=== PATIENT | female | born 1950 | race Caucasian/White ===

== ENCOUNTER 2018-10-02 16:47 | Inpatient (IN) ==
[~2018-10-02 16:47] MED LIST: Adenosine Inj 6 MG/2 ML Syringe IV.PUSH ONE
[2018-10-02] MEDS ORDERED: fentaNYL Citrate Inj 100 MCG/2 ML Ampul ONE (16:51)
[2018-10-02] MEDS ORDERED: Diphtheria/Tetanus/Pertussis Vaccine Inj 0.5 ML Syringe IM ONE (16:53)
[2018-10-02] MEDS ORDERED: Midazolam Inj 5 MG/ML 1 ML Vial ONE (17:00)
[2018-10-02 17:07] LABS: Baso # (Auto) 0.1 th/mm3 (0.0-0.2); Baso % (Auto) 0.7 % (0.0-2.0); Eos # (Auto) 0.1 th/mm3 (0.0-0.4); Eos % (Auto) 0.3 % (0.0-4.0); Hematocrit 41.5 % (35.0-46.0); Lymph # (Auto) 3.7 th/mm3 (1.0-4.8); Mean Corpuscular HGB Conc 33.8 % (32.0-36.0); Mean Corpuscular Hemoglobin 30.8 pg (27.0-34.0); Mean Corpuscular Volume 91.1 fL (80.0-100.0); Mean Platelet Volume 8.4 fL (7.0-11.0); Mono # (Auto) 1.2 th/mm3 (0.0-0.9); Mono % (Auto) 6.7 % (0.0-8.0); Neut # (Auto) 13.5 th/mm3 (1.8-7.7); Neut % (Auto) 72.3 % (16.0-70.0); Platelet Count 440 th/mm3 (150-450); Red Blood Count 4.56 mil/mm3 (4.00-5.30); Red Cell Distribution Width 15.4 % (11.6-17.2); White Blood Count 18.6 th/mm3 (4.0-11.0)
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
[2018-10-02 17:17] LABS: Activated Partial Thrombo Time 23.6 sec (23.4-31.7); INR 1.1 Ratio; Prothrombin Time 11.5 sec (9.8-11.6)
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
[2018-10-02 17:40] LABS: ABG PCO2 36 mmHg (38-42); ABG PO2 107 mmHg (61-120)
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
[2018-10-02] MEDS ORDERED: Potassium Chlor 40 mEq Premix 40 MEQ/100 ML PIGGYBACK IV.SIG PRN ×2 (17:52)
[2018-10-02] MEDS ORDERED: Potassium Phosphate 500 MG Soluble Tablet PO PRN ×2 (17:52)
[2018-10-02] MEDS ORDERED: Potassium Chlor 20 mEq Premix 20 MEQ/100 ML PIGGYBACK IV.SIG PRN (17:52)
[2018-10-02] MEDS ORDERED: Magnesium Sulfate Inj 2 GM in Sodium Chlor 0.9% Inj 96 ML IV.SIG PRN (17:52)
[2018-10-02] MEDS ORDERED: Bisacodyl 10 MG Supp RECTAL PRN (17:52)
[2018-10-02] MEDS ORDERED: Acetaminophen 325 MG Tablet PO PRN (17:52)
[2018-10-02] MEDS ORDERED: Magnesium Sulfate Inj 4 GM in Sodium Chlor 0.9% Inj 92 ML IV.SIG PRN (17:52)
[2018-10-02] MEDS ORDERED: Sodium Phosphate Inj 30 MMOL in Sodium Chlor 0.9% Inj 250 ML IV.SIG PRN (17:52)
[2018-10-02] MEDS ORDERED: Potassium Chloride 25 MEQ Effervescent Tablet PO PRN (17:52)
[2018-10-02] MEDS ORDERED: Potassium Phosphate Inj 30 MMOL in Sodium Chlor 0.9% Inj 250 ML IV.SIG PRN (17:52)
[2018-10-02] MEDS ORDERED: Magnesium Oxide 400 MG Tablet PO PRN (17:52)
[2018-10-02 18:43] LABS: Alanine Aminotransferase 20 U/L (10-53)
[2018-10-02 18:45] LABS: Alkaline Phosphatase 86 U/L (45-117); Total Protein 7.6 g/dL (6.4-8.2)
[2018-10-02 18:51] LABS: Albumin 3.8 g/dL (3.4-5.0); Anion Gap 19 meq/L (5-15); Aspartate Aminotransferase 25 U/L (15-37); Blood Urea Nitrogen 8 mg/dL (7-18); Calcium 8.8 mg/dL (8.5-10.1); Carbon Dioxide 17.9 meq/L (21.0-32.0); Chloride 96 meq/L (98-107); Glomerular Filtration Rate 32 mL/min (>89); Glucose,Random 238 mg/dL (74-106); Magnesium 1.3 mg/dL (1.5-2.5); Potassium 3.4 meq/L (3.5-5.1); Sodium 133 meq/L (136-145)
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
[2018-10-02] MEDS: Morphine Inj 4 MG/ML Vial IV.PUSH PRN ×3 (19:21→23:33)
[2018-10-02] MEDS: Sod Chloride 0.9% Inj 1,000 ML IV.CONT SCH (19:35)
[2018-10-02] MEDS ORDERED: Dextrose 50% in Water 50 ML Vial IV.PUSH PRN (19:44)
[2018-10-02] MEDS ORDERED: Influenza (Quadrivalent) Vaccine 0.5 ML Syringe IM ONE (20:30)
[2018-10-02] MEDS ORDERED: Fosphenytoin Inj 1,000 MGPE in Sodium Chlor 0.9% Inj 50 ML IV.SIG STA (20:36)
[2018-10-02] MEDS ORDERED: Haloperidol Inj 5 MG/ML Ampul IV.PUSH ONE (21:00)
[2018-10-02] MEDS ORDERED: Magnesium Sulfate Inj 2 GM in Sodium Chlor 0.9% Inj 96 ML IV.SIG ONE (21:00)
[2018-10-02] MEDS ORDERED: Dexmedetomidine Inj 200 MCG in Sodium Chlor 0.9% Inj 48 ML IV.CONT PRN (21:00)
[2018-10-02] MEDS ORDERED: Dexmedetomidine Inj 200 MCG/2 ML Vial IV.PUSH ONE (21:00)
[2018-10-02] MEDS: LORazepam 1 MG Tablet PO SCH (21:30)
[2018-10-02] MEDS: Senna/Docusate Sodium 8.6/50 MG Tablet PO SCH (21:33)
[2018-10-02] MEDS: Famotidine 20 MG Tablet PO SCH (21:33)
[2018-10-02] MEDS: Potassium Chlor 10 mEq Premix 10 MEQ/100 ML PIGGYBACK IV.SIG SCH ×2 (21:53→23:48)
[2018-10-02] MEDS: Famotidine PF Inj 20 MG/2 ML Vial IV.PUSH SCH (21:58)
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
[2018-10-03] MEDS: Insulin NovoLOG Aspart Correctional Sugar Inj SQ SCH ×5 (00:31→23:57)
[2018-10-03] MEDS: Potassium Chlor 10 mEq Premix 10 MEQ/100 ML PIGGYBACK IV.SIG SCH (01:26)
[2018-10-03 01:28] LABS: Bacteria,Urine Rare /hpf; Bilirubin,Urine Negative (Negative); Clarity,Urine Clear (Clear); Color,Urine Yellow (Yellw/Straw); Glucose,Urine (UA) Negative (Negative); Hyaline Casts,Urine 3 /lpf (0-3); Leukocyte Esterase,Urine Negative (Negative); Mucus,Urine Few /lpf (Occasional); Nitrite,Urine Negative (Negative); Specific Gravity,Urine 1.006 (1.002-1.035)
[2018-10-03] MEDS ORDERED: Sod Chloride 0.9% Inj 1,000 ML IV.SIG ONE (01:45)
[2018-10-03] MEDS ORDERED: Albumin Human 5% Inj 250 ML IV.SIG ONE (02:00)
[2018-10-03 03:25] LABS: Baso # (Auto) 0.1 th/mm3 (0.0-0.2); Baso % (Auto) 0.5 % (0.0-2.0); Eos % (Auto) 0.1 % (0.0-4.0); Hematocrit 30.7 % (35.0-46.0); Hemoglobin 10.5 gm/dL (11.6-15.3); Lymph # (Auto) 1.6 th/mm3 (1.0-4.8); Lymph % (Auto) 14.1 % (9.0-44.0); Mean Corpuscular HGB Conc 34.3 % (32.0-36.0); Mean Corpuscular Hemoglobin 30.8 pg (27.0-34.0); Mean Corpuscular Volume 89.7 fL (80.0-100.0); Mean Platelet Volume 8.2 fL (7.0-11.0); Mono % (Auto) 8.7 % (0.0-8.0); Neut # (Auto) 8.8 th/mm3 (1.8-7.7); Neut % (Auto) 76.6 % (16.0-70.0); Platelet Count 250 th/mm3 (150-450); Red Blood Count 3.42 mil/mm3 (4.00-5.30); Red Cell Distribution Width 15.2 % (11.6-17.2); White Blood Count 11.5 th/mm3 (4.0-11.0)
[2018-10-03] MEDS: Chlorhexidine Gluconate 2% 1 Pack (2 Cloths) TOPICAL SCH (03:34)
[2018-10-03 03:59] LABS: Anion Gap 6 meq/L (5-15); Blood Urea Nitrogen 6 mg/dL (7-18); Carbon Dioxide 26.4 meq/L (21.0-32.0); Chloride 112 meq/L (98-107); Glomerular Filtration Rate 57 mL/min (>89); Glucose,Random 117 mg/dL (74-106); Magnesium 1.8 mg/dL (1.5-2.5); Potassium 3.3 meq/L (3.5-5.1); Sodium 144 meq/L (136-145)
[2018-10-03] MEDS ORDERED: Chlorhexidine Gluconate 2% 1 Pack (2 Cloths) TOPICAL PRN (04:00)
[2018-10-03 04:10] LABS: Calcium-Albumin Corrected 7.8 mg/dL (8.5-10.1)
[2018-10-03] MEDS: Potassium Chlor 20 mEq Premix 20 MEQ/100 ML PIGGYBACK IV.SIG PRN ×3 (04:17→23:58)
[2018-10-03] MEDS: Morphine Inj 4 MG/ML Vial IV.PUSH PRN ×5 (05:21→22:26)
[2018-10-03] MEDS: Sod Chloride 0.9% Inj 1,000 ML IV.CONT SCH ×3 (05:35→23:57)
[2018-10-03] MEDS: LORazepam 1 MG Tablet PO SCH ×4 (09:06→20:02)
[2018-10-03] MEDS: Senna/Docusate Sodium 8.6/50 MG Tablet PO SCH ×2 (09:07→20:02)
[2018-10-03] MEDS: Famotidine 20 MG Tablet PO SCH ×2 (09:07→20:02)
[2018-10-03] MEDS: Famotidine PF Inj 20 MG/2 ML Vial IV.PUSH SCH ×2 (09:07→20:02)
[2018-10-03] MEDS ORDERED: Hold Metfromin until further notice OTHER SCH (09:51)
--- NOTE | 2018-10-03 13:41 | ECG ---
Date Performed: 10/02/2018 Time Performed: 17:29:31 PTAGE: 89 years EKG: SINUS TACHYCARDIA RIGHT ATRIAL ENLARGEMENT POSSIBLE LEFT ATRIAL ENLARGEMENT BORDERLINE LEFT AXIS DEVIATION ABNORMAL ECG NO PRIOR TRACING DOCTOR: Jaylen Reagan Interpretating Date/Time 10/03/2018 13:30:50
--- NOTE | 2018-10-03 15:04 | OTSOAPIP ---
ATTEMPTED TO SEE PATIENT. PATIENT IS CURRENTLY DEEPLY SLEEPING AFTER BEING RECENTLY MEDICATED IN PREPARATION TO GO TO CT. ROSA GARCIA REQUESTED TO HOLD EVALUATION THIS DATE. WILL REATTEMPT NEXT DAY. Therapist: Tete Balderas OTR/L Signature on file
--- NOTE | 2018-10-03 15:30 | ECHRPT ---
Indication: SYNCOPE CONCLUSIONS Normal left ventricular size and wall thickness. The left ventricular systolic function is normal wi th an estimated ejection fraction in the range of 60-65%. No regional wall motion abnormalities are presen t. [id number] mitral valve regurgitation. There is mild to tricuspid valve regurgitation. The estimated pulmonary arterial pressure is 45 mmHg. BP: / HR: Rhythm: Sinus MEASUREMENTS (Male / Female) Normal Values Technical Quality:Fair 2D ECHO LV Diastolic Diameter PLAX 4.3 cm 4.2 - 5.9 / 3.9 - 5.3 cm LV Systolic Diameter PLAX 2.6 cm IVS Diastolic Thickness 1.0 cm 0.6 - 1.0 / 0.6 - 0.9 cm LVPW Diastolic Thickness 1.0 cm 0.6 - 1.0 / 0.6 - 0.9 cm LV Relative Wall Thickness 0.5 RV Internal Dim ED PLAX 2.9 cm LVOT Diameter 1.8 cm Aortic Root Diameter 2.8 cm LA Systolic Diameter LX 2.8 cm 3.0 - 4.0 / 2.7 - 3.8 cm M-MODE AV Cusp Separation MM 2.1 cm DOPPLER AV Peak Velocity 139.0 cm/s AV Peak Gradient 7.7 mmHg AV Mean Gradient 4.0 mmHg AV Velocity Time Integral 25.4 cm LVOT Peak Velocity 103.0 cm/s LVOT Peak Gradient 4.2 mmHg LVOT Velocity Time Integral 21.0 cm AV Area Cont Eq vti 2.1 cm AV Area Cont Eq pk 1.9 cm Mitral E Point Velocity 118.0 cm/s Mitral A Point Velocity 105.0 cm/s Mitral E to A Ratio 1.1 LV E' Lateral Velocity 11.1 cm/s Mitral E to LV E' Lateral Ratio 10.6 LV E' Septal Velocity 8.5 cm/s Mitral E to LV E' Septal Ratio 13.9 TR Peak Velocity 309.0 cm/s TR Peak Gradient 38.2 mmHg Right Atrial Pressure 10.0 mmHg Pulmonary Artery Systolic Pressu 48.2 mmHg Right Ventricular Systolic Press 48.2 mmHg PV Peak Velocity 88.7 cm/s PV Peak Gradient 3.1 mmHg FINDINGS LEFT VENTRICLE Normal left ventricular size and wall thickness. The left ventricular systolic function is normal wi th an estimated ejection fraction in the range of 60-65%. No regional wall motion abnormalities are presen t. RIGHT VENTRICLE Normal right ventricular size and systolic function. LEFT ATRIUM The left atrial size is normal. RIGHT ATRIUM The right atrial size is normal. ATRIAL SEPTUM The interatrial septum not well visualized. AORTA The aortic root and proximal ascending aorta are not well visualized. MITRAL VALVE [id number] mitral valve regurgitation. AORTIC VALVE Trileaflet aortic valve. No aortic valve stenosis or regurgitation. TRICUSPID VALVE There is mild to tricuspid valve regurgitation. The estimated pulmonary arterial pressure is 45 mmHg. PULMONARY VALVE No pulmonary valve regurgitation or stenosis. VESSELS The inferior vena cava is normal in size. PERICARDIUM A prominent epicardial fat pad is present. Dennis Mejia MD (Electronically Signed) Final Date:03 October 2018 15:29
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
[2018-10-04] MEDS: Potassium Chlor 20 mEq Premix 20 MEQ/100 ML PIGGYBACK IV.SIG PRN (02:05)
[2018-10-04] MEDS: Chlorhexidine Gluconate 2% 1 Pack (2 Cloths) TOPICAL SCH (03:51)
[2018-10-04 05:30] LABS: Baso # (Auto) 0.1 th/mm3 (0.0-0.2); Baso % (Auto) 0.8 % (0.0-2.0); Eos # (Auto) 0.1 th/mm3 (0.0-0.4); Eos % (Auto) 0.6 % (0.0-4.0); Hematocrit 28.9 % (35.0-46.0); Hemoglobin 9.9 gm/dL (11.6-15.3); Lymph % (Auto) 24.6 % (9.0-44.0); Mean Corpuscular HGB Conc 34.4 % (32.0-36.0); Mean Corpuscular Hemoglobin 31.1 pg (27.0-34.0); Mean Corpuscular Volume 90.4 fL (80.0-100.0); Mean Platelet Volume 8.4 fL (7.0-11.0); Mono # (Auto) 0.8 th/mm3 (0.0-0.9); Mono % (Auto) 9.5 % (0.0-8.0); Neut # (Auto) 5.3 th/mm3 (1.8-7.7); Neut % (Auto) 64.5 % (16.0-70.0); Platelet Count 199 th/mm3 (150-450); Red Blood Count 3.19 mil/mm3 (4.00-5.30); Red Cell Distribution Width 15.5 % (11.6-17.2); White Blood Count 8.2 th/mm3 (4.0-11.0)
[2018-10-04] MEDS: Morphine Inj 4 MG/ML Vial IV.PUSH PRN (05:36)
[2018-10-04] MEDS: Insulin NovoLOG Aspart Correctional Sugar Inj SQ SCH ×4 (05:51→20:35)
[2018-10-04 06:36] LABS: Alanine Aminotransferase 14 U/L (10-53); Albumin 2.7 g/dL (3.4-5.0); Alkaline Phosphatase 59 U/L (45-117); Anion Gap 8 meq/L (5-15); Aspartate Aminotransferase 16 U/L (15-37); Blood Urea Nitrogen 3 mg/dL (7-18); Calcium 7.6 mg/dL (8.5-10.1); Carbon Dioxide 22.7 meq/L (21.0-32.0); Chloride 111 meq/L (98-107); Glomerular Filtration Rate 81 mL/min (>89); Glucose,Random 93 mg/dL (74-106); Potassium 4.2 meq/L (3.5-5.1); Sodium 142 meq/L (136-145); Total Protein 5.5 g/dL (6.4-8.2)
[2018-10-04] MEDS: LORazepam 1 MG Tablet PO SCH (08:12)
[2018-10-04] MEDS: Senna/Docusate Sodium 8.6/50 MG Tablet PO SCH ×2 (08:12→20:36)
[2018-10-04] MEDS: Famotidine PF Inj 20 MG/2 ML Vial IV.PUSH SCH ×2 (08:12→22:51)
[2018-10-04] MEDS: Famotidine 20 MG Tablet PO SCH ×2 (08:12→20:36)
--- NOTE | 2018-10-04 09:56 | P.PNNEU ---
Subjective Subjective Comments: confused off and on Active Medications: Active Medications Acetaminophen (Tylenol) 650 mg PO Q6H PRN PRN Reason: FEVER >101F Hydrocodone Bitart/Acetaminophen (Wheeler 10/325) 1 tab PO Q4H PRN PRN Reason: PAIN SCALE 1 TO 10 Last Admin: 10/04/18 08:11 Dose: 1 tab Al Hydroxide/Mg Hydroxide (Milk Of Magnhenry Liq) 30 ml PO Q12H PRN PRN Reason: Mild Constipation Bisacodyl (Dulcolax Supp) 10 mg RECTAL DAILY PRN PRN Reason: SEVERE CONSITIPATION Chlorhexidine Gluconate (Chlorhexidine 2% Cloth) 3 pack TOPICAL DAILY@0400 [facility] Stop: 10/08/18 03:59 Last Admin: 10/04/18 03:51 Dose: 3 pack Chlorhexidine Gluconate (Chlorhexidine 2% Cloth) 3 pack TOPICAL DAILY@0400 PRN PRN Reason: Extra cloth needed Stop: 10/08/18 03:59 Dextrose (D50w Vial) 50 ml IV.PUSH UNSCH PRN PRN Reason: PER HYPOGLYCEMIA PROTOCOL Famotidine (Pepcid Pf Inj) 20 mg IV.PUSH Q12HR [facility] Last Admin: 10/04/18 08:12 Dose: Not Given Famotidine (Pepcid) 20 mg PO BID [facility] Last Admin: 10/04/18 08:12 Dose: 20 mg Glucagon (Glucagon Inj) 1 mg OTHER PRN PRN PRN Reason: for Hypoglycemia Protocol Magnesium Sulfate 2 gm/ Sodium (Chloride) 100 mls @ 50 mls/hr IV.SIG UNSCH PRN PRN Reason: For Magnesium 1.2 - 1.6 mg/dL Sodium Chloride (Ns Inj) 1,000 mls @ 100 mls/hr IV.CONT .Q10H [facility] Last Admin: 10/03/18 23:57 Dose: 100 mls/hr Potassium Chloride (Kcl 40 Meq Premix Inj) 40 meq in 100 mls @ 25 mls/hr IV.SIG Q2H PRN PRN Reason: For Potassium 2.8 - 3.2 mEq/L Potassium Chloride (Kcl 20 Meq Premix Inj) 20 meq in 100 mls @ 50 mls/hr IV.SIG Q2H PRN PRN Reason: For Potassium 3.3 - 3.5 mEq/L Last Infusion: 10/04/18 04:05 Dose: Infused Potassium Chloride (Kcl 40 Meq Premix Inj) 40 meq in 100 mls @ 25 mls/hr IV.SIG UNSCH PRN PRN Reason: For Potassium 3.3 - 3.5 mEq/L Potassium Phosphate 30 mmol/ (Sodium Chloride) 260 mls @ 42 mls/hr IV.SIG UNSCH PRN PRN Reason: SEE LABEL COMMENTS Sodium Phosphate 30 mmol/ (Sodium Chloride) 260 mls @ 42 mls/hr IV.SIG UNSCH PRN PRN Reason: For Phosphorus < 2.5 mg/dL Magnesium Sulfate 4 gm/ Sodium (Chloride) 100 mls @ 50 mls/hr IV.SIG UNSCH PRN PRN Reason: For Magnesium 0.9 - 1.1 mg/dL Potassium Chloride (Kcl 20 Meq Premix Inj) 20 meq in 100 mls @ 50 mls/hr IV.SIG Q2H PRN PRN Reason: For Potassium 2.8 - 3.2 mEq/L Dexmedetomidine HCl 200 mcg/ (Sodium Chloride) 50 mls @ 4.39 mls/hr IV.CONT TITRATE PRN; Protocol PRN Reason: Per Protocol Last Titration: 10/02/18 23:48 Dose: 0 mcg/kg/hr, 0 mls/hr Norepinephrine Bitartrate (Levophed-Dextrose 4 Mg/250 Ml Drip) 4 mg in 250 mls @ 7.5 mls/hr IV.SIG TITRATE PRN; Protocol PRN Reason: Per Protocol Last Titration: 10/03/18 11:40 Dose: 0 mcg/min, 0 mls/hr Insulin Aspart (Novolog Insulin Correctional Sugar Inj) 0 unit SQ Q6HR [facility]; Protocol Last Admin: 10/04/18 05:51 Dose: Not Given Lactulose (Lactulose Liq) 30 ml PO DAILY PRN PRN Reason: SEVERE CONSITIPATION Lorazepam (Ativan) 1 mg PO QID [facility] Last Admin: 10/04/18 08:12 Dose: 1 mg Magnesium Oxide (Mag-Ox) 800 mg PO UNSCH PRN PRN Reason: For Magnesium 1.2 - 1.6 mg/dL Morphine Sulfate (Morphine Inj) 2 mg IV.PUSH Q2H PRN PRN Reason: PAIN SCALE 6 TO 10 Last Admin: 10/04/18 05:36 Dose: 2 mg Ondansetron HCl (Zofran Inj) 4 mg IV.PUSH Q6H PRN PRN Reason: NAUSEA OR VOMITING Pharmacy Profile Note (Until Further Notice) 1 each OTHER UNSCH [facility] Phenytoin Sodium (Dilantin Inj) 200 mg IV.PUSH Q12HR [facility] Last Admin: 10/04/18 08:11 Dose: 200 mg Potassium Bicarb/Potassium Chloride (K-Lyte Cl Eff) 50 meq PO UNSCH PRN PRN Reason: For Potassium 3.3 - 3.5 mEq/L Potassium Phosphate (K-Phos Original) 2,000 mg PO Q4H PRN PRN Reason: Phosphorus Less Than 2.5 mg/dL Potassium Phosphate (K-Phos Original) 2,000 mg PO UNSCH PRN PRN Reason: SEE LABEL COMMENTS Pravastatin Sodium (Pravachol) 40 mg PO [facility] Last Admin: 10/03/18 20:02 Dose: 40 mg Senna/Docusate Sodium (Marzena-Colace) 1 tab PO BID [facility] Last Admin: 10/04/18 08:12 Dose: 1 tab Sennosides (Senokot) 17.2 mg PO Q12H PRN PRN Reason: Moderate Constipation Sodium Chloride (Ns Flush) 2 ml IV.FLUSH BID [facility] Last Admin: 10/03/18 20:02 Dose: 2 ml Sodium Chloride (Ns Flush) 2 ml IV.FLUSH PRN PRN PRN Reason: FLUSH AFTER USING IV ACCESS Terbutaline Sulfate (Brethine Inj) 1 mg SQ UNSCH PRN PRN Reason: For Extravasation Allergies/Adverse Reactions: Allergies Allergy/AdvReac Type Severity Reaction Status Date / Time alprazolam [From Xanax] Allergy Hives Verified 10/03/18 09:03 bee venom protein (honey bee) Allergy Edema, Verified 10/03/18 09:04 [Bee sting] Generalized strawberry Allergy Hives Verified 10/03/18 09:04 Sulfa (Sulfonamide Allergy Difficulty Verified 10/03/18 09:05 Antibiotics) Swallowing Physical Exam Vital signs: Vital Signs 10/03/18 10:00 10/03/18 10:15 10/03/18 10:30 Temperature Pulse Rate 77 77 78 Respiratory Rate 24 21 22 Blood Pressure 97/54 L 102/55 L 102/51 L Pulse Oximetry 100 100 100 10/03/18 10:45 10/03/18 10:47 10/03/18 11:00 Temperature Pulse Rate 77 84 82 Respiratory Rate 23 30 H 30 H Blood Pressure 103/51 L 118/51 L Pulse Oximetry 100 100 97 10/03/18 11:40 10/03/18 12:00 10/03/18 13:00 Temperature 98.5 F Pulse Rate 81 82 81 Respiratory Rate 27 H 22 21 Blood Pressure 137/65 139/72 123/59 L Pulse Oximetry 98 100 99 10/03/18 14:00 10/03/18 15:00 10/03/18 16:00 Temperature 98.1 F Pulse Rate 78 102 H 88 Respiratory Rate 17 29 H 24 Blood Pressure 120/59 L 125/60 116/56 L Pulse Oximetry 97 96 97 10/03/18 17:04 10/03/18 17:27 10/03/18 17:38 Temperature Pulse Rate 97 H 93 H Respiratory Rate 24 Blood Pressure 122/61 Pulse Oximetry 93 L 95 10/03/18 17:47 10/03/18 18:00 10/03/18 19:00 Temperature Pulse Rate 94 H 98 H Respiratory Rate 24 Blood Pressure 125/70 114/59 L Pulse Oximetry 95 96 94 L 10/03/18 20:00 10/03/18 21:00 10/03/18 21:23 Temperature 98.6 F Pulse Rate 95 H 87 Respiratory Rate 20 29 H Blood Pressure 120/76 119/57 L Pulse Oximetry 94 L 95 96 10/03/18 22:00 10/03/18 23:00 10/04/18 00:00 Temperature 98.9 F Pulse Rate 89 81 80 Respiratory Rate 24 24 20 Blood Pressure 118/57 L 119/56 L 111/61 Pulse Oximetry 93 L 93 L 95 10/04/18 01:00 10/04/18 02:00 10/04/18 03:00 Temperature Pulse Rate 86 79 80 Respiratory Rate 24 25 H 25 H Blood Pressure 110/56 L 109/56 L 156/65 H Pulse Oximetry 95 94 L 93 L 10/04/18 04:00 10/04/18 05:00 10/04/18 06:00 Temperature 99.0 F Pulse Rate 85 91 H 87 Respiratory Rate 22 39 H 24 Blood Pressure 117/57 L 122/59 L 144/65 H Pulse Oximetry 94 L 93 L 93 L 10/04/18 07:00 10/04/18 08:00 10/04/18 08:11 Temperature 98.4 F Pulse Rate 90 90 Respiratory Rate 25 H 41 H 18 Blood Pressure 147/69 H 156/85 H Pulse Oximetry 92 L 91 L 10/04/18 09:00 10/04/18 09:51 Temperature Pulse Rate 87 Respiratory Rate 25 H Blood Pressure 148/65 H Pulse Oximetry 93 L 95 Intake & Output 10/03/18 10/04/18 10/04/18 18:59 06:59 18:59 Intake Total 1100 / 1100 1200 / 1200 Output Total 600 / 600 725 / 725 Balance 500 / 500 475 / 475 Weight 91.3 kg Intake: IV 1100 / 1100 1200 / 1200 NS Inj 1,000 ML @ 100 mls/hr IV 1000 / 1000 1000 / 1000 .CONT .Q10H [facility] Rx#:[id number] KCl 20 mEq Premix Inj 20 meq In 100 / 100 200 / 200 100 ml @ 50 mls/hr IV.SIG Q2H PRN Rx#:[id number] Output: Urine Amount (Catheter) 600 / 600 725 / 725 Indwelling Urethral Catheter 600 / 600 725 / 725 Other: # Bowel Movements 0 - Constitutional no acute distress - Routine HEENT Exam Head: Present: normocephalic Eye: Present: EOMI - Routine Neurological Exam Present: alert, CN II-XII intact, moving all extremities, normal speech - Urinary Catheter Management Indwelling Urethral Catheter Cath placed during this visit: no Objective Radiology Results: mri brain w/o negative. eeg c/w isolated sharp on the left Laboratory Results - last 24 hr 10/02/18 10/03/18 10/03/18 21:11 12:51 17:20 WBC RBC Hgb Hct MCV MCH MCHC RDW Plt Count MPV Neut % (Auto) Lymph % (Auto) Bibb % (Auto) Eos % (Auto) Baso % (Auto) Neut # (Auto) Lymph # (Auto) Bibb # (Auto) Eos # (Auto) Baso # (Auto) WBC Differential Differential Comment Sodium Potassium Chloride Carbon Dioxide Anion Gap BUN Creatinine Estimated GFR POC Glucose 88 119 H Random Glucose Calcium Total Bilirubin AST ALT Alkaline Phosphatase Total Protein Albumin Prolactin 45 H 10/03/18 10/03/18 10/04/18 21:02 23:29 04:34 WBC 8.2 RBC 3.19 L Hgb 9.9 L Hct 28.9 L MCV 90.4 MCH 31.1 MCHC 34.4 RDW 15.5 Plt Count 199 MPV 8.4 Neut % (Auto) 64.5 Lymph % (Auto) 24.6 Bibb % (Auto) 9.5 H Eos % (Auto) 0.6 Baso % (Auto) 0.8 Neut # (Auto) 5.3 Lymph # (Auto) 2.0 Bibb # (Auto) 0.8 Eos # (Auto) 0.1 Baso # (Auto) 0.1 WBC Differential . Differential Comment Auto diff final Sodium Potassium 3.4 L Chloride Carbon Dioxide Anion Gap BUN Creatinine Estimated GFR POC Glucose 89 Random Glucose Calcium Total Bilirubin AST ALT Alkaline Phosphatase Total Protein Albumin Prolactin 10/04/18 10/04/18 04:34 05:30 WBC RBC Hgb Hct MCV MCH MCHC RDW Plt Count MPV Neut % (Auto) Lymph % (Auto) Bibb % (Auto) Eos % (Auto) Baso % (Auto) Neut # (Auto) Lymph # (Auto) Bibb # (Auto) Eos # (Auto) Baso # (Auto) WBC Differential Differential Comment Sodium 142 Potassium 4.2 D Chloride 111 H Carbon Dioxide 22.7 Anion Gap 8 BUN 3 L Creatinine 0.72 Estimated GFR 81 L POC Glucose 90 Random Glucose 93 Calcium 7.6 L Total Bilirubin 0.5 AST 16 ALT 14 Alkaline Phosphatase 59 Total Protein 5.5 L D Albumin 2.7 L Prolactin Review/Management - Review/Management Plan: cont pht change to po and check level ok to go to telemetry floor if stable
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
[2018-10-04] MEDS: LORazepam 1 MG Tablet PO PRN (17:58)
[2018-10-04] MEDS: Phenytoin Sodium 100 MG Capsule PO SCH (22:46)
[2018-10-05 06:45] LABS: Baso # (Auto) 0.1 th/mm3 (0.0-0.2); Baso % (Auto) 0.8 % (0.0-2.0); Eos # (Auto) 0.1 th/mm3 (0.0-0.4); Eos % (Auto) 0.5 % (0.0-4.0); Hematocrit 30.3 % (35.0-46.0); Hemoglobin 10.1 gm/dL (11.6-15.3); Lymph # (Auto) 1.4 th/mm3 (1.0-4.8); Lymph % (Auto) 12.5 % (9.0-44.0); Mean Corpuscular HGB Conc 33.2 % (32.0-36.0); Mean Corpuscular Hemoglobin 30.2 pg (27.0-34.0); Mean Corpuscular Volume 90.9 fL (80.0-100.0); Mean Platelet Volume 8.7 fL (7.0-11.0); Mono # (Auto) 0.8 th/mm3 (0.0-0.9); Mono % (Auto) 7.6 % (0.0-8.0); Neut # (Auto) 8.5 th/mm3 (1.8-7.7); Neut % (Auto) 78.6 % (16.0-70.0); Platelet Count 195 th/mm3 (150-450); Red Blood Count 3.33 mil/mm3 (4.00-5.30); Red Cell Distribution Width 15.5 % (11.6-17.2); White Blood Count 10.8 th/mm3 (4.0-11.0)
[2018-10-05] MEDS: Insulin NovoLOG Aspart Correctional Sugar Inj SQ SCH ×4 (08:42→21:08)
[2018-10-05] MEDS: Senna/Docusate Sodium 8.6/50 MG Tablet PO SCH ×3 (09:27→21:12)
[2018-10-05] MEDS: Phenytoin Sodium 100 MG Capsule PO SCH ×2 (09:27→18:27)
[2018-10-05] MEDS: Famotidine 20 MG Tablet PO SCH ×2 (09:27→21:07)
[2018-10-05] MEDS: LORazepam 1 MG Tablet PO PRN ×2 (09:29→18:27)
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
[2018-10-05] MEDS: Lidocaine 5% Patch T-DERMAL SCH (12:13)
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
[2018-10-06] MEDS: Phenytoin Sodium 100 MG Capsule PO SCH ×3 (01:19→17:10)
[2018-10-06] MEDS: LORazepam 1 MG Tablet PO PRN ×4 (01:25→22:57)
[2018-10-06] MEDS: Insulin NovoLOG Aspart Correctional Sugar Inj SQ SCH ×4 (07:54→22:59)
[2018-10-06] MEDS: Senna/Docusate Sodium 8.6/50 MG Tablet PO SCH ×2 (09:32→20:18)
[2018-10-06] MEDS: Famotidine 20 MG Tablet PO SCH ×2 (09:32→22:55)
[2018-10-06] MEDS: Lidocaine 5% Patch T-DERMAL SCH (09:33)
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
[2018-10-07] MEDS: Phenytoin Sodium 100 MG Capsule PO SCH ×3 (02:13→10:18)
[2018-10-07] MEDS: Insulin NovoLOG Aspart Correctional Sugar Inj SQ SCH (08:18)
[2018-10-07] MEDS: LORazepam 1 MG Tablet PO PRN (08:18)
[2018-10-07] MEDS: Famotidine 20 MG Tablet PO SCH (08:19)
[2018-10-07] MEDS: Lidocaine 5% Patch T-DERMAL SCH (08:19)
[2018-10-07] MEDS: Senna/Docusate Sodium 8.6/50 MG Tablet PO SCH (08:19)
[2018-10-07 08:39] VITALS: BP 155/74; PULSE 86; RESP 17; TEMP 98.1; O2SAT 93
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
== END 2018-10-07 11:38 | DRG 90 ==
LOC: NEPI 16:47 → N03 17:39 → EDBD 17:39 → N03 20:26 → N07 10-04 13:01
PROVIDERS: ADMIT Surgery Trauma Surgery; ATTEND Surgery Trauma Surgery
DX: F32.9 Major depressive disorder, single episode, unspecified; Y92.410 Unspecified street and highway as the place of occurrence of the external cause; F41.9 Anxiety disorder, unspecified; K21.9 Gastro-esophageal reflux disease without esophagitis; S20.01XA Contusion of right breast, initial encounter; G40.409 Other generalized epilepsy and epileptic syndromes, not intractable, without status epilepticus; Z87.891 Personal history of nicotine dependence; S00.11XA Contusion of right eyelid and periocular area, initial encounter; E11.9 Type 2 diabetes mellitus without complications; I10 Essential (primary) hypertension; M47.812 Spondylosis without myelopathy or radiculopathy, cervical region; I95.9 Hypotension, unspecified; S30.1XXA Contusion of abdominal wall, initial encounter; K57.30 Diverticulosis of large intestine without perforation or abscess without bleeding; S00.12XA Contusion of left eyelid and periocular area, initial encounter; V47.5XXA Car driver injured in collision with fixed or stationary object in traffic accident, initial encounter; S91.319A Laceration without foreign body, unspecified foot, initial encounter; R00.0 Tachycardia, unspecified; Z23 Encounter for immunization; E78.5 Hyperlipidemia, unspecified; E66.9 Obesity, unspecified; S06.0X9A Concussion with loss of consciousness of unspecified duration, initial encounter; Z88.2 Allergy status to sulfonamides; R40.2422 Glasgow coma scale score 9-12, at arrival to emergency department; Z79.84 Long term (current) use of oral hypoglycemic drugs; S61.411A Laceration without foreign body of right hand, initial encounter; Z68.39 Body mass index [BMI] 39.0-39.9, adult
CPT/HCPCS: 36430; 36600; 51702; 70450; 70486; 70498; 70551; 71010; 71045; 71260; 72125; 72129; 72132; 72170; 73060; 73120; 74177; 80048; 80053; 80185; 81001; 82040; 82805; 82948; 82962; 83735; 84132; 84146; 84484; 85025; 85610; 85730; 86850; 86900; 86901; 86920; 86923; 87641; 90471; 90658; 90686; 90715; 90774; 90775; 90784; 93005; 93306; 94150; 95819; 96374; 96375; 97110; 97163; 97167; 97530; 97535; 99291; C8952; C9223; G0390; J0150; J0153; J1165; J1815; J2060; J2250; J2270; J2405; J3010; J3475; J3480; J7030; P9016; P9045; Q2009; Q2038; Q9967